=== PATIENT | male | born 1995 | race Caucasian/White ===

== ENCOUNTER 2017-03-08 10:28 | Emergency (ER) | payer SELFPAY ==
[~2017-03-08] VITALS: Ht 193 cm; Wt 68.0 kg
[2017-03-08 10:34] VITALS: TEMP 36.4; Ht 193 cm; Wt 68.0 kg
--- NOTE | 2017-03-08 11:07 | DIAGNOSTIC IMAGING REPORT ---
RIGHT HAND 3 VIEWS HISTORY: R hand 5th MC pain/deformity Right COMPARISON: None. FINDINGS: Transverse fracture within the mid shaft of the fifth metacarpal which demonstrates mild angulation. No dislocation. Soft tissue swelling within the hand. No radiopaque foreign bodies. IMPRESSION: Right fifth metacarpal fracture. Electronically signed by: Brady Vidales M.D. 03/08/2017 11:06 AM Dictated Date/Time: 03/08/2017 11:05 AM
[2017-03-08] MEDS ORDERED: HYDR-5688 PO (11:38)
[2017-03-08 12:27] VITALS: BP 112/70; PULSE 57; O2SAT 100
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
== END 2017-03-08 12:29 | disposition home or self-care (01) ==
LOC: C.EDB 10:29 → C.EDA 12:29
DX: S62.326A Displaced fracture of shaft of fifth metacarpal bone, right hand, initial encounter for closed fracture (principal); Z87.828 Personal history of other (healed) physical injury and trauma; Z82.49 Family history of ischemic heart disease and other diseases of the circulatory system; Z83.3 Family history of diabetes mellitus; W10.9XXA Fall (on) (from) unspecified stairs and steps, initial encounter

== ENCOUNTER 2017-09-12 15:37 | Emergency (ER) | payer OTHER ==
[~2017-09-12] VITALS: Ht 193 cm; Wt 76.7 kg
[2017-09-12 15:41] VITALS: TEMP 36.7; Ht 193 cm; Wt 76.7 kg
[2017-09-12 16:52] LABS: BASO % 0.4 %; BASO ABS # 0.04 K/uL (0-0.2); COMPLETE YES; EOS % 0.5 %; HEMATOCRIT 44.7 % (42-52); IG% 0.1 %; LYMPH % 6.1 %; LYMPH ABS # 0.64 K/uL (1.2-3.4); MEAN CELL VOLUME 90.9 fL (80-100); MEAN CORPUSCULAR HEMOGLOBIN 31.1 pg (25-34); MEAN CORPUSCULAR HGB CONC 34.2 g/dl (32-36); MEAN PLATELET VOLUME 10.9 fL (7.4-10.4); MONO % 7.8 %; NEUT % 85.1 %; PLATELET COUNT 209 K/uL (130-400); RED BLOOD COUNT 4.92 M/uL (4.7-6.1); WHITE BLOOD COUNT 10.43 K/uL (4.8-10.8)
[2017-09-12 17:02] LABS: MANUAL MICROSCOPIC REQUIRED? NO; REVIEW REQ? NO; URINE APPEARANCE CLOUDY (CLEAR); URINE BILIRUBIN NEG (NEG); URINE COLOR YELLOW; URINE NITRITE NEG (NEG); URINE PH >= 9.0 (4.5-7.5); URINE SPECIFIC GRAVITY 1.017 (1.000-1.030); UROBILINOGEN NEG (NEG)
[2017-09-12 17:08] LABS: BUN/CREATININE RATIO 10.6 (10-20); CALCIUM 9.1 mg/dl (8.5-10.1); CREATININE 1.13 mg/dl (0.60-1.40); POTASSIUM 4.6 mmol/L (3.5-5.1)
[2017-09-12 17:19] LABS: THYROID STIMULATING HORMONE 0.568 uIu/ml (0.300-4.500)
[2017-09-12 17:23] LABS: ACETAMINOPHEN < 2 ug/ml (10-30)
[2017-09-12 17:34] LABS: BENZODIAZEPINE, URINE NEG (NEG); COCAINE,URINE NEG (NEG); PHENCYCLIDINE, URINE NEG (NEG)
[2017-09-12 20:26] VITALS: BP 134/77; PULSE 80; O2SAT 99
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
== END 2017-09-12 20:29 | disposition home or self-care (01) ==
LOC: C.EDB 15:38 → C.EDA 20:29
DX: F39 Unspecified mood [affective] disorder (principal); R45.851 Suicidal ideations; J02.9 Acute pharyngitis, unspecified; F17.200 Nicotine dependence, unspecified, uncomplicated

== ENCOUNTER 2019-08-28 18:12 | Observation (INO) ==
[2019-08-28] MEDS ORDERED: PROCHLORPERAZINE 5 MG/ML 2 ML VIAL IV STA (18:52)
[2019-08-28] MEDS ORDERED: DiphenhydrAMINE HCL 50 MG/ML VIAL IV STA (18:52)
[2019-08-28] MEDS ORDERED: MAGNESIUM SULFATE / D5W 1 GM/100 ML BAG IV ONE (18:54)
[2019-08-28] MEDS ORDERED: VALPROATE SOD 1,000 MG in DEXTROSE 5% 50 ML IV STA (18:54)
[2019-08-28] MEDS ORDERED: SODIUM CHLORIDE 0.9% 1000ML 1,000 ML IV SCH (19:00)
[2019-08-28 19:07] LABS: Basophils # (auto) 0.02 K/uL (0-0.2); Basophils % (auto) 0.4 %; Eosinophils # (auto) 0.03 K/uL (0-0.5); Eosinophils % (auto) 0.6 %; Hematocrit (blood only) 37.3 % (42-52); Hemoglobin 12.9 g/dL (14.0-18.0); Lymphocytes # (auto) 1.55 K/uL (1.2-3.4); Lymphocytes % (auto) 32.2 %; Mean Corpuscular Hemoglobin 30.9 pg (25-34); Mean Corpuscular Hgb Conc 34.6 g/dL (32-36); Mean Corpuscular Volume 89.4 fL (80-100); Monocytes # (auto) 0.56 K/uL (0.11-0.59); Monocytes % (auto) 11.6 %; Neutrophils # (auto) 2.65 K/uL (1.4-6.5); Neutrophils % (auto) 55.2 %; Platelet Count 164 K/uL (130-400); RDW Coefficient of Variation 12.5 % (11.5-14.5); RDW Standard Deviation 40.5 fL (36.4-46.3); Red Blood Count 4.17 M/uL (4.7-6.1); White Blood Count 4.81 K/uL (4.8-10.8)
[2019-08-28 19:34] LABS: Albumin Globulin Ratio 1.3 (0.9-2); Albumin Level 3.6 gm/dl (3.4-5.0); BUN Creatinine Ratio 8.5 (10-20); Bilirubin,Total 0.3 mg/dl (0.2-1); Calcium 8.2 mg/dl (8.5-10.1); Creatinine Clr Calc Pharmacy 113.2 ml/min; Est GFR (African American) 104.9; Est GFR (Non-African American) 90.5; Globulin 2.8 gm/dl (2.5-4.0); Potassium 3.6 mmol/L (3.5-5.1); Total Protein 6.4 gm/dl (6.4-8.2)
[2019-08-28] MEDS ORDERED: DEXAMETHASONE SOD PHOSPHATE 10 MG in SYRINGE 0 ML IV STA (20:47)
[2019-08-28] MEDS ORDERED: DiphenhydrAMINE HCL 50 MG/ML VIAL IV PRN (20:49)
[2019-08-28] MEDS ORDERED: METOCLOPRAMIDE HCL INJ 5 MG/ML 2 ML VIAL IV PRN (20:49)
[2019-08-28] MEDS ORDERED: DEXAMETHASONE SOD INJ 4 MG/ML VIAL IV ONE (21:00)
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
[2019-08-28] MEDS ORDERED: GADOBUTROL 65ML VIAL IV PRN (22:17)
--- NOTE | 2019-08-28 22:34 | Magnetic Resonance Report ---
MR brain wo/w con CLINICAL HISTORY: 24 years-old Male presenting with severe headache, migraines, constant headache for a week, blurred vision. TECHNIQUE: Multisequence, multiplanar MR imaging of the brain was performed before and after the admi nistration of intravenous contrast. IV contrast: 7.5 mL of Gadavist. COMPARISON: CT head from 08/25/2019. FINDINGS: Localizer images: Unremarkable. Bone marrow signal intensity within the calvarium within normal limits. Normal midline sagittal structures. Ventricles and sulci normal in size. No mass effect or midline sh ift. No restricted diffusion or hemorrhage. Several small primarily punctate foci of T2/FLAIR hyperin tensity in the frontal lobe white matter. No abnormal parenchymal enhancement. No extra-axial fluid collection. T2 skull base flow voids preserved. IMPRESSION: 1. Several small foci of abnormal white matter signal can be seen in the setting of chronic migraine s among other etiologies. No abnormal enhancement. Electronically signed by: Steve Baker M.D. 08/28/2019 10:32 PM
[2019-08-28] MEDS ORDERED: DOXYCYCLINE HYCLATE 100 MG in DEXTROSE 5% 100 ML IV SCH (22:37)
[2019-08-28] MEDS ORDERED: IBUPROFEN 600 MG TAB PO PRN (22:37)
[2019-08-28] MEDS: SODIUM CHLORIDE 0.9% 1000ML 1,000 ML IV SCH (23:02)
[2019-08-29] MEDS: DOXYCYCLINE HYCLATE 100 MG in DEXTROSE 5% 100 ML IV SCH ×2 (00:26→12:00)
[2019-08-29] MEDS: SODIUM CHLORIDE 0.9% 1000ML 1,000 ML IV SCH (06:41)
[2019-08-29 07:16] VITALS: O2SAT 98
[2019-08-29 12:07] LABS: Hematocrit (blood only) 41.2 % (42-52); Hemoglobin 14.4 g/dL (14.0-18.0); Immature Granulocytes # (auto) 0.01 K/uL (0.00-0.02); Immature Granulocytes % (auto) 0.1 %; Lymphocytes # (auto) 0.41 K/uL (1.2-3.4); Lymphocytes % (auto) 4.6 %; Mean Corpuscular Volume 88.8 fL (80-100); Mean Platelet Volume 10.4 fL (7.4-10.4); Monocytes # (auto) 0.29 K/uL (0.11-0.59); Monocytes % (auto) 3.3 %; Neutrophils # (auto) 8.13 K/uL (1.4-6.5); Platelet Count 194 K/uL (130-400); RDW Coefficient of Variation 12.3 % (11.5-14.5); RDW Standard Deviation 39.5 fL (36.4-46.3); Red Blood Count 4.64 M/uL (4.7-6.1); White Blood Count 8.84 K/uL (4.8-10.8)
[2019-08-29 12:43] LABS: BUN Creatinine Ratio 12.2 (10-20); Calcium 9.4 mg/dl (8.5-10.1); Creatinine Clr Calc Pharmacy 134.7 ml/min; Est GFR (African American) 129.3; Est GFR (Non-African American) 111.6; Potassium 4.3 mmol/L (3.5-5.1)
[2019-08-29 15:21] VITALS: PULSE 80; TEMP 98.2
--- NOTE | 2019-08-29 15:46 | Hospitalist Progress Note ---
Date of Service August 29, 2019 Assessment & Plan (1) Status migrainosus: Status Migrainosus +Family history of migraine MRI Brain:Several small foci of abnormal white matter signal can be seen in the setting of chronic migraines among other etiologies. No abnormal enhancement. Head CTA:No significant stenosis, occlusion, or aneurysm within the [place]. Recent lumbar puncture: CSF culture negative, serology pending Variable blood pressure likely secondary to migraine Denies any known obvious triggering factors Received valproic acid, diphenhydramine, Compazine in ER Also received Decadron 10 mg IV Continue PRN ibuprofen, diphenhydramine, metoclopramide Neurology consulted Need to be started on prophylactic migraine medications H/O Depression Stable Plan to resume home meds as able Possible Sinusitis Was prescribed Azithromycin by primary care provider 08/27/2019 Continue Doxycycline Day #2 H/O Diarrhea Colonoscopy performed by [facility] last month- unrevealing continue outpatient ff up with GI monitor DVT Px SCDs Encourage to ambulate Code Status Full Code Disposition Expect to discharge home when stable Subjective Patient is seen and examined at bedside Headache is slightly better today Denies any change in vision, vertigo, chest pain, shortness of breath, nausea, abdominal pain, dizziness Admits to have allergies, sinus pressure Offers no other complaints Review of Systems Review of Systems: All systems reviewed & are unremarkable except as noted in HPI & below Physical Exam Physical Exam: Physical Exam: Vitals signs as noted above General Appearance:Moderately built and nourished, no apparent distress Head: normocephalic, Atraumatic Eyes: normal inspection, EOMI Neck: supple, Trachea midline Respiratory/Chest: Normal breath sounds, CTA Cardiovascular: S1, S2, No murmur Abdomen/GI:Soft, Non tender, Bowel sounds present Extremities/Musculoskelatal:normal inspection, no edema Neurologic/Psych:AAOX3, grossly no focal neurological deficits Skin: normal color, warm, +Multiple Tatoos Results & Data Vital Signs (Past 12 Hours) Vital Signs Temp Pulse Resp BP Pulse Ox 08/29/19 15:20 36.8 C 80 16 99/70 L 98 08/29/19 07:15 36.3 C L 72 18 123/78 98 Laboratory Results Short CBC 08/28/19 08/29/19 Range/Units 18:57 11:50 WBC 4.81 8.84 (4.8-10.8) K/uL Hgb 12.9 L 14.4 (14.0-18.0) g/dL Hct 37.3 L 41.2 L (42-52) % Plt Count 164 194 (130-400) K/uL BMP 08/28/19 08/29/19 18:57 11:50 Sodium 142 138 Potassium 3.6 4.3 D Chloride 105 103 Carbon Dioxide 33 H 30 BUN 10 12 Creatinine 1.13 0.95 Glucose 95 105 H Calcium 8.2 L 9.4 Liver Function 08/28/19 Range/Units 18:57 Total Bilirubin 0.3 (0.2-1) mg/dl AST 15 (15-37) U/L ALT 17 (12-78) U/L Alkaline Phosphatase 50 (45-117) U/L Albumin 3.6 (3.4-5.0) gm/dl
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
--- NOTE | 2019-08-29 17:36 | Discharge Summary ---
Date of Service August 29, 2019 Admission HPI Per Admitting Provider History of Present Illness 24-year-old male with history of depression presenting with persistent headache times few days. A few days ago patient started to have left-sided headache, sharp, severe, worsened by light, persistent, no associated neurologic deficits, Associated with malaise and night sweats per family members. No fevers or chills. He presented to the ER on August 25. CT angiogram of the head revealed no significant stenosis, occlusion, aneurysm within the [place]. Headache improved with Decadron, Benadryl, Compazine, and Toradol. The next day patient presented to the ER again for worsening of headaches. Lumbar puncture was performed, negative for meningitis. Lyme screen negative, anaplasmosis DNA pending. He was advised for admission but patient declined. Yesterday, patient saw his primary care provider and was prescribed with azithromycin, Toradol, Compazine. Headache continued to progress Today, patient presents again with severe left-sided headache. At the ER, he was given Valium, Compazine, and Benadryl with relief of symptoms. On my exam, the patient is resting in bed, drowsy but able to be awakened. He is oriented x3, reports headache is now down to 3 out of 10. Denies active nausea, chest pain, shortness of breath, dizziness, abdominal pain, changes with urination or bowel movement. Primary Care Provider: Evens Costa MD Admission Exam Per Admitting Provider Physical Exam Physical Exam: General- oriented x 3, not in distress, speaks in sentences with no effort or accessory muscle use Drowsy Head- atraumatic Eyes- PERRL, EOMI, anicteric ENT- oropharynx clear Neck- supple, no JVD, no adenopathy, no thyromegaly; carotids +2/2, no bruits appreciated Lungs- clear to auscultation bilaterally, no rales/wheezes Heart- normal rate, regular rhythm; no murmur, no gallop, no rub appreciated Abdomen- normal bowel sounds, nondistended, soft, nontender, no masses or hepatosplenomegaly Extremities- no pretibial edema, no calf tenderness; peripheral pulses intact Neuro-drowsy but easily awakened, oriented x 3; CN 2-12 grossly intact; motor 5/5 bilaterally;sensation 100% on all extremities; no other gross focal neurologic deficits Skin- warm & dry Principal Diagnosis Status migrainosus Possible Sinusitis Discharge Data Allergies Allergy/AdvReac Type Severity Reaction Status Date / Time amoxicillin Allergy Intermediate Hives Unverified 08/28/19 18:40 Consultations 08/28/19 19:56 ED Decision to Admit Stat 08/28/19 22:37 Consult Neurology Routine Procedures Performed MRI Brain:Several small foci of abnormal white matter signal can be seen in the setting of chronic migraines among other etiologies. No abnormal enhancement. Head CTA:No significant stenosis, occlusion, or aneurysm within the [place]. Ordered Studies 08/28/19 20:43 MR brain wo/w con Stat Hospital Course (1) Status migrainosus: Status Migrainosus +Family history of migraine MRI Brain:Several small foci of abnormal white matter signal can be seen in the setting of chronic migraines among other etiologies. No abnormal enhancement. Head CTA:No significant stenosis, occlusion, or aneurysm within the [place]. Recent lumbar puncture: CSF culture negative, serology pending Variable blood pressure likely secondary to migraine Denies any known obvious triggering factors Received valproic acid, diphenhydramine, Compazine in ER Also received Decadron 10 mg IV Continue PRN ibuprofen, diphenhydramine, metoclopramide Appreciate Neurology Input Started on Magnesium Oxide and Riboflavin Needs follow up with Neurology in 4-6 weeks H/O Depression Stable Currently not on meds as per patient Possible Sinusitis Was prescribed Azithromycin by primary care provider 08/27/2019 Continue Doxycycline H/O Diarrhea Colonoscopy performed by [facility] last month- unrevealing continue outpatient ff up with GI monitor DVT Px SCDs Encourage to ambulate Code Status Full Code Disposition Plan to discharge home today Total Time Total Time Spent Total Time Spent (In Minutes): 40 minutes Total Time Includes: Examination of the Patient, Discharge Planning, Medication Reconciliation, Communication With Other Providers and Other Discharge Plan Discharge Items Patient Disposition: Home - Self-Care Reason For Visit: SEVERE MIGRAINE Discharge Diagnosis: Status migrainosus Possible Sinusitis Activity: Resume your previous activity Exercise/Sports: Gradually increase as tolerated Non-emergency contact: Primary Care Provider and Neurologist Call non-emergency contact if: you have any medication questions, your symptoms worsen, your pain is not controlled, your pain is worsening, your pain is unusual for you, your pain is concerning for you and you have a fever Follow-up/Referrals: Evens Costa MD [Primary Care Provider] - Diet: Regular Addtl Attending Provider Instructions: Follow-up with your primary care physician Dr. Pattesron in 1 week as advised Follow-up with your neurologist Alysia Laurent PA-C in 4 to 6 weeks as advised Complete antibiotic course for sinusitis as prescribed Start taking magnesium oxide 400 mg, riboflavin 400 mg daily to help with your migraine Seek immediate medical attention if your symptoms reoccur or worsen Pending Studies at Discharge: No Stand-Alone Forms: My [facility], Work/School Release (Inpt), Smoking Cessation Medications and DC Order Prescriptions: New magnesium oxide 400 mg (241.3 mg magnesium) tablet 400 mg PO DAILY Qty: 30 RF: 1 riboflavin (vitamin B2) 400 mg tablet 400 mg PO DAILY Qty: 30 RF: 1 doxycycline hyclate 100 mg tablet 100 mg PO BID 4 Days Qty: 8 RF: 0 Continued ibuprofen 200 mg Tablet 600 mg PO Q6H PRN (Reason: Fever Or Pain) RF: 0 Discontinued azithromycin 250 mg tablet 250 mg PO UD RF: 0 ketorolac 10 mg tablet 10 mg PO QID PRN (Reason: Pain) RF: 0 Discharge Orders: Discharge Order (Routine); Ordered 08/29/19 Ordered By: Curtis Neri Admission Data Admit Date/Time: 08/28/19 20:43 Attending Provider: Curtis Neri Admit Provider: Albert Constantino Primary Care Provider: Evens Costa Other Providers: Albert Constantino ; Alysia Arias Other Interventions: Discharge Summary Assessment (RN) Last Done: 08/29/19 17:41 DC Date/Time DO NOT enter until pt leaves facility: 08/29/19 18:05
[2019-08-29 17:43] VITALS: BP 139/83
== END 2019-08-29 18:05 | disposition home or self-care (01) ==
LOC: ED 18:12 → 4W 18:12 → SUATTDRO 20:43 → 4W 22:30

== ENCOUNTER 2021-02-23 12:44 | Inpatient (IN) ==
[2021-02-23] MEDS ORDERED: NALOXONE HCL 0.4 MG/1 ML VIAL/CARP IV STA (13:04)
[2021-02-23] MEDS ORDERED: SODIUM CHLORIDE 0.9% 1000ML 2,000 ML IV ONE (13:17)
[2021-02-23 13:28] LABS: Basophils # (auto) 0.03 K/uL (0-0.2); Basophils % (auto) 0.2 %; Eosinophils # (auto) 0.16 K/uL (0-0.5); Eosinophils % (auto) 1.2 %; Hematocrit (blood only) 43.9 % (42-52); Hemoglobin 15.3 g/dL (14.0-18.0); Immature Granulocytes # (auto) 0.03 K/uL (0.00-0.02); Immature Granulocytes % (auto) 0.2 %; Lymphocytes # (auto) 2.33 K/uL (1.2-3.4); Lymphocytes % (auto) 17.2 %; Mean Corpuscular Hemoglobin 31.5 pg (25-34); Mean Corpuscular Hgb Conc 34.9 g/dL (32-36); Mean Corpuscular Volume 90.5 fL (80-100); Monocytes # (auto) 0.82 K/uL (0.11-0.59); Monocytes % (auto) 6.1 %; Neutrophils # (auto) 10.16 K/uL (1.4-6.5); Neutrophils % (auto) 75.1 %; Platelet Count 301 K/uL (130-400); RDW Coefficient of Variation 12.3 % (11.5-14.5); RDW Standard Deviation 40.6 fL (36.4-46.3); Red Blood Count 4.85 M/uL (4.7-6.1); White Blood Count 13.53 K/uL (4.8-10.8)
--- NOTE | 2021-02-23 13:44 | XRay Report ---
XR chest 1V portable CLINICAL HISTORY: Chest Pain COMPARISON STUDY: Chest radiograph June 30, 2017. FINDINGS: Lung volumes are normal. Lungs are clear. There is no pneumothorax or pleural effusion. Car diac size is normal. Mediastinal contours are normal. There is no evidence for pulmonary edema. IMPRESSION: No acute cardiopulmonary findings. ACT 112: Negative or not required by law. Electronically signed by: Miguel Ángel Brenner M.D. 02/23/2021 1:43 PM
[2021-02-23 13:45] LABS: Alanine Aminotransferase 21 U/L (12-78); Albumin Level 4.2 gm/dl (3.4-5.0); Aspartate Aminotransferase 16 U/L (15-37); Bilirubin Direct 0.2 mg/dl (0-0.2); Blood Urea Nitrogen 14 mg/dl (7-18); Calcium 8.6 mg/dl (8.5-10.1); Carbon Dioxide 30 mmol/L (21-32); Chloride 103 mmol/L (98-107); Creatinine Clr Calc Pharmacy 100.8 ml/min; Est GFR (African American) 91.3; Est GFR (Non-African American) 78.8; Glucose 220 mg/dl (70-99); Lipase 224 U/L (73-393); Magnesium 2.1 mg/dl (1.8-2.4); Potassium 3.2 mmol/L (3.5-5.1); Sodium 140 mmol/L (136-145)
[2021-02-23 13:49] LABS: Albumin Globulin Ratio 1.4 (0.9-2); Alkaline Phosphatase 62 U/L (45-117); Bilirubin,Total 0.6 mg/dl (0.2-1); Creatine Kinase 150 U/L (39-308); Globulin 3.1 gm/dl (2.5-4.0); Phosphorus 3.9 mg/dl (2.5-4.9); Total Protein 7.3 gm/dl (6.4-8.2); Troponin I < 0.015 ng/ml (0-0.045)
[2021-02-23 14:19] LABS: Appearance Urine Turbid (Clear); Bacteria Urine Automated Negative (Negative); Bilirubin Urine Negative (Negative); Blood Urine Negative (Negative); Color Urine Yellow; Glucose Urine UA 2+ (Negative); Ketones Urine Negative (Negative); Leukocyte Esterase Urine Negative (Negative); Nitrite Urine Negative (Negative); Protein Urine Negative (Negative); RBC Urine Automated >30 /hpf (0-4); Specific Gravity Urine 1.026 (1.000-1.030); Urobilinogen Urine Negative (Negative)
[2021-02-23 14:34] LABS: Amorphous Sediment Urine Present (None Prsent)
[2021-02-23 14:38] LABS: Amphetamines+Metham, Urine Neg (Neg); Barbiturates, Urine Neg (Neg); Benzodiazepine, Urine Neg (Neg); Cocaine, Urine Neg (Neg); MDMA (Ecstacy), Urine Neg (Neg); Methadone, Urine Neg (Neg); Opiate, Urine Neg (Neg); Phencyclidine, Urine Neg (Neg)
--- NOTE | 2021-02-23 15:40 | Electrocardiogram Report ---
Test Reason : Blood Pressure : / mmHG Vent. Rate : 133 BPM Atrial Rate : 133 BPM P-R Int : 134 ms QRS Dur : 106 ms QT Int : 302 ms P-R-T Axes : 059 071 045 degrees QTc Int : 449 ms Sinus tachycardia RSR' or QR pattern in V1 suggests right ventricular conduction delay Borderline ECG No previous ECGs available Confirmed by Bubba Hawthorne ([id number]) on 02/23/2021 3:40:00 PM Referred By: REFERRED SELF Confirmed By:Bubba Hawthorne
--- NOTE | 2021-02-23 15:40 | CT Scan Report ---
CT OF THE HEAD WITHOUT CONTRAST CLINICAL HISTORY: syncope COMPARISON STUDY: Head CT and CTA of the head August 25, 2019. MRI the brain August 28, 2019. CT DOSE: 614.27 mGy.cm TECHNIQUE: Helical axial images of the head were obtained without IV contrast. Automated exposure con trol was utilized for the study. A dose lowering technique was utilized adhering to the principles o f ALARA. FINDINGS: No acute intracranial hemorrhage, midline shift or mass effect is present. The ventricular system is unremarkable. The basal cisterns are patent. No extra-axial collections are present. There are no findings to suggest acute dural sinus thrombosis or acute territorial infarct. No significant calvarial abnormalities are present. Visualized portions of the sinuses and mastoid air cells are zach ar. IMPRESSION: No acute intracranial findings. ACT 112: Negative or not required by law. Electronically signed by: Miguel Ángel Brenner M.D. 02/23/2021 3:39 PM
[2021-02-23] MEDS ORDERED: GADOBUTROL 7.5ML VIAL IV ONE (17:21)
--- NOTE | 2021-02-23 18:00 | Emergency Department Note ---
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 Influenza Type B (PCR) Negative (Neg) RSV (RT-PCR) Negative (Neg) Administered Medications Discontinued Medications Diphenhydramine HCl (Diphenhydramine 50 Mg/Ml Vial) 12.5 mg IV NOW STA Stop: 02/23/21 19:45 Last Admin: 02/23/21 19:51 Dose: 12.5 mg Documented by: [id number] Gadobutrol (Gadobutrol 7.5ml Vial) 7.5 ml IV ONCE ONE Stop: 02/23/21 17:22 Last Admin: 02/23/21 17:21 Dose: 7.5 ml Documented by: [id number] Sodium Chloride (Nss 1000ml) 2,000 mls @ 999 mls/hr IV .Q2H1M ONE Stop: 02/23/21 15:17 Last Infusion: 02/23/21 15:45 Dose: 0 mls/hr Documented by: [id number] Admin: 02/23/21 13:45 Dose: 999 mls/hr Documented by: [id number] Acetaminophen (Ofirmev) 1,000 mg in 100 mls @ 400 mls/hr IV NOW STA Stop: 02/23/21 19:58 Last Infusion: 02/23/21 20:18 Dose: 0 mls/hr Documented by: [id number] Admin: 02/23/21 19:50 Dose: 400 mls/hr Documented by: [id number] Prochlorperazine (Compazine) 1 mls @ 1 mls/min IV ONE ONE Stop: 02/23/21 19:45 Last Admin: 02/23/21 19:51 Dose: 1 mls/min Documented by: [id number] Ioversol (Optiray 350 500ml) 120 ml IV ONCE ONE Stop: 02/23/21 20:58 Last Admin: 02/23/21 20:58 Dose: 120 ml Documented by: [id number] Naloxone HCl (Naloxone Hcl 0.4 Mg/1 Ml Vial/Carp) 0.4 mg IV NOW STA Stop: 02/23/21 13:05 Last Admin: 02/23/21 14:50 Dose: Not Given Documented by: [id number] Potassium Chloride (Potassium Chloride Crtab 20 Meq Tabcr) 40 meq PO NOW STA Stop: 02/23/21 19:16 Last Admin: 02/23/21 19:50 Dose: 40 meq Documented by: [id number] Imaging Data Radiologist's Impression: Chest X-Ray 02/23/21 13:17 XR chest 1V portable CLINICAL HISTORY: Chest Pain COMPARISON STUDY: Chest radiograph June 30, 2017. FINDINGS: Lung volumes are normal. Lungs are clear. There is no pneumothorax or pleural effusion. Cardiac size is normal. Mediastinal contours are normal. There is no evidence for pulmonary edema. IMPRESSION: No acute cardiopulmonary findings. ACT 112: Negative or not required by law. Electronically signed by: Miguel Ángel Brenner M.D. 02/23/2021 1:[address] 02/23/21 14:58 CT OF THE HEAD WITHOUT CONTRAST CLINICAL HISTORY: syncope COMPARISON STUDY: Head CT and CTA of the head August 25, 2019. MRI the brain August 28, 2019. CT DOSE: 614.27 mGy.cm TECHNIQUE: Helical axial images of the head were obtained without IV contrast. Automated exposure control was utilized for the study. A dose lowering techni que was utilized adhering to the principles of ALARA. FINDINGS: No acute intracranial hemorrhage, midline shift or mass effect is present. The ventricular system is unremarkable. The basal cisterns are patent. No extra-axial collections are present. There are no findings to suggest acute dural sinus thrombosis or acute territorial infarct. No significant calvarial abnormalities are present. Visualized portions of the sinuses and mastoid air cells are clear. IMPRESSION: No acute intracranial findings. ACT 112: Negative or not required by law. Electronically signed by: Miguel Ángel Brenner M.D. 02/23/2021 3:39 PM Brain MRI 02/23/21 16:45 MRI OF THE BRAIN WITHOUT AND WITH IV CONTRAST SEIZURE PROTOCOL CLINICAL HISTORY: syncope / ?sz COMPARISON STUDY: MRI of the brain August 28, 2019. Head CT performed earlier today. TECHNIQUE: Utilizing a 1.5 Peri magnet and dedicated coil, multiplanar, multiecho imaging of the brain was performed pre and postcontrast administration. IV administration of 7.5 mL of Gadavist contrast was uneventful. Thin cut coronal T2 imaging was performed according to seizure protocol. FINDINGS: There are no foci of restricted diffusion to suggest acute infarct. No acute intracranial hemorrhage, midline shift or mass effect is present. Brain volume is normal. Ventricular system is normal. Basal cisterns are patent. There are no extra-axial collections. Flow-voids for the major intracranial vessels are present. This exam is mildly compromised by motion artifact. There is no intracranial mass or pathologic enhancement. A few white matter T2 hyperintense foci measuring up to 5 mm are unchanged since MRI of August 28, 2019. There is no evidence for mesial temporal sclerosis. Calvarial signal is normal. Orbits ar e unremarkable. IMPRESSION: 1. No acute intracranial findings. 2. No intracranial mass or pathologic enhancement. 3. No change in a few small nonspecific white matter T2 hyperintense foci since MRI of August 28, 2019. No change in appearance of the brain. ACT 112: Negative or not required by law. Electronically signed by: Miguel Ángel Brenner M.D. 02/23/2021 6:14 PM Discharge Plan Visit Data Chief Complaint: Overdose (Accidental) ED Provider: Danny Nielsen Discharge Problem: Syncope, Witnessed seizure-like activity, Elevated blood pressure reading, Microscopic hematuria, Right ventricular conduction delay, Hypokalemia Patient Disposition: Admitted As Inpatient Condition: Good Prescriptions Prescriptions: No Action No Known Home Medications RF: 0 Referrals Referrals: Evens Costa MD [Primary Care Provider] - Discharge Problem: Syncope Qualifiers: Syncope type: unspecified Qualified Code(s): R55 - Syncope and collapse
--- NOTE | 2021-02-23 18:15 | Magnetic Resonance Report ---
MRI OF THE BRAIN WITHOUT AND WITH IV CONTRAST SEIZURE PROTOCOL CLINICAL HISTORY: syncope / ?sz COMPARISON STUDY: MRI of the brain August 28, 2019. Head CT performed earlier today. TECHNIQUE: Utilizing a 1.5 Peri magnet and dedicated coil, multiplanar, multiecho imaging of the br ain was performed pre and postcontrast administration. IV administration of 7.5 mL of Gadavist contr ast was uneventful. Thin cut coronal T2 imaging was performed according to seizure protocol. FINDINGS: There are no foci of restricted diffusion to suggest acute infarct. No acute intracranial h emorrhage, midline shift or mass effect is present. Brain volume is normal. Ventricular system is nor mal. Basal cisterns are patent. There are no extra-axial collections. Flow-voids for the major intrac ranial vessels are present. This exam is mildly compromised by motion artifact. There is no intracran ial mass or pathologic enhancement. A few white matter T2 hyperintense foci measuring up to 5 mm are unchanged since MRI of August 28, 2019. There is no evidence for mesial temporal sclerosis. Calvari al signal is normal. Orbits are unremarkable. IMPRESSION: 1. No acute intracranial findings. 2. No intracranial mass or pathologic enhancement. 3. No change in a few small nonspecific white matter T2 hyperintense foci since MRI of August 28 019. No change in appearance of the brain. ACT 112: Negative or not required by law. Electronically signed by: Miguel Ángel Brenner M.D. 02/23/2021 6:14 PM
[2021-02-23 19:09] LABS: Troponin I < 0.015 ng/ml (0-0.045)
[2021-02-23] MEDS ORDERED: POTASSIUM CHLORIDE CRTAB 20 MEQ TABCR PO STA ×2 (19:15→21:53)
[2021-02-23] MEDS ORDERED: diphenhydrAMINE 50 MG/ML VIAL IV STA (19:44)
[2021-02-23] MEDS ORDERED: PROCHLORPERAZINE 1 ML IV ONE (19:44)
[2021-02-23] MEDS ORDERED: ACETAMINOPHEN 1,000 MG/100 ML VIAL IV STA (19:44)
[2021-02-23] MEDS ORDERED: LACTATED RINGER'S 1,000 ML IV SCH (19:45)
[2021-02-23 20:17] LABS: Partial Thromboplastin Ratio 0.8; Partial Thromboplastin Time 21.7 Seconds (21.0-31.0)
[2021-02-23 20:19] LABS: Thyroid Stimulating Hormone 0.632 uIu/ml (0.300-4.500)
[2021-02-23 20:49] LABS: Procalcitonin < 0.05 ng/ml (0-0.5)
[2021-02-23 20:55] LABS: Lyme Ab IgG w/WB Rflx Negative (Negative); Lyme Ab IgM w/WB Rflx Negative (Negative)
[2021-02-23] MEDS ORDERED: OPTIRAY 350 500ml IV ONE (20:57)
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
[2021-02-23 21:25] LABS: Influenza A virus by PCR Negative (Neg); Influenza B virus by PCR Negative (Neg); RSV by PCR Negative (Neg); SARS CoV2 RNA(COVID-19) InHosp NEGATIVE (Negative)
[2021-02-23] MEDS ORDERED: CLINDAMYCIN 600 MG in DEXTROSE 5% 50 ML IV ONE (21:53)
[2021-02-23] MEDS ORDERED: LEVALBUTEROL 1.25MG/0.5ML NEB INH PRN (22:51)
[2021-02-23] MEDS ORDERED: PROMETHAZINE HCL 12.5 MG in SODIUM CHLORIDE 0.9% 50 ML IV PRN (22:51)
[2021-02-23] MEDS ORDERED: NITROGLYCERIN SL 0.4 MG/TAB TAB SL PRN (22:51)
[2021-02-23] MEDS ORDERED: KETOROLAC TROMETHAMINE 15 MG/ML VIAL IV PRN (22:51)
[2021-02-23] MEDS ORDERED: IPRATROPIUM BROMIDE NEB SOLN 0.02% 2.5 ML VIAL INH PRN (22:51)
[2021-02-23] MEDS ORDERED: XOPENEX/ATROVENT 1.25mg/0.5MG NEB COMBO NEB PRN (22:51)
[2021-02-23] MEDS ORDERED: IBUPROFEN 200 MG TAB PO PRN (22:51)
[2021-02-23] MEDS: NICOTINE 14 MG/24 HR PATCH TD SCH (23:13)
[2021-02-23] MEDS ORDERED: POTASSIUM CHLORIDE 20 MEQ in LACTATED RINGER'S 1,000 ML IV ONE (23:15)
[2021-02-24] MEDS ORDERED: LACTULOSE SYRUP 30 GM/45 ML UDP PO STA (00:16)
[2021-02-24] MEDS: CLINDAMYCIN HCL 150 MG CAP PO SCH ×3 (06:12→17:15)
--- NOTE | 2021-02-24 07:47 | CT Scan Report ---
CT ANGIOGRAM OF THE CHEST CLINICAL HISTORY: Syncope. Found unresponsive. COMPARISON STUDY: Chest x-ray dated 02/23/2021. TECHNIQUE: Following the IV administration of 120 cc of Optiray 350, CT angiogram of the chest was pe rformed from the upper abdomen to the thoracic inlet utilizing the pulmonary embolus protocol. Images are reviewed in the axial, sagittal, and coronal planes. 3-D MIPS images are created and assessed. I V contrast was administered without complication. A dose lowering technique was utilized adhering to the principles of ALARA. CT DOSE: 404.45 mGy.cm FINDINGS: Thyroid: Imaged portions of the thyroid gland are normal in size and attenuation. Thoracic aorta: The thoracic aorta is normal in caliber and demonstrates standard 3-vessel arch anato my. No dissection is seen. Pulmonary vasculature: The pulmonary trunk is normal in caliber. There are no filling defects identif ied in main, lobar, or segmental pulmonary branches to suggest pulmonary embolus. Heart: The heart is normal in size and without pericardial effusion. Lungs and pleural spaces: There is mild patchy groundglass consolidation seen at the right lung base on image #125. The trachea and central airways are clear. No pleural effusion is identified. Mediastinum: There is no mediastinal lymphadenopathy. Katie: Clear. Axillae: There is no axillary lymphadenopathy. Upper abdomen: Partially visualized upper abdominal viscera is within normal limits. Skeletal structures: No lytic or blastic bony lesions are seen. IMPRESSION: 1. There is no evidence of pulmonary embolus in the main, lobar, or segmental pulmonary arteries. 2. Mild patchy consolidation is seen at the right lung base. This could represent a mild infectious/i nflammatory pneumonitis, or possibly an aspiration event. Clinical correlation will be required. 3. No pleural effusion is identified. 4. Additional findings as above. ACT 112: Negative or not required by law. Electronically signed by: Constantin Gupta M.D. 02/24/2021 7:45 AM
[2021-02-24] MEDS ORDERED: CLINDAMYCIN 600 MG in DEXTROSE 5% 50 ML IV SCH (08:00)
[2021-02-24 08:03] LABS: Basophils # (auto) 0.02 K/uL (0-0.2); Basophils % (auto) 0.3 %; Eosinophils # (auto) 0.08 K/uL (0-0.5); Hematocrit (blood only) 39.8 % (42-52); Hemoglobin 13.5 g/dL (14.0-18.0); Immature Granulocytes # (auto) 0.02 K/uL (0.00-0.02); Immature Granulocytes % (auto) 0.3 %; Lymphocytes # (auto) 1.27 K/uL (1.2-3.4); Lymphocytes % (auto) 16.1 %; Mean Corpuscular Hemoglobin 31.8 pg (25-34); Mean Corpuscular Hgb Conc 33.9 g/dL (32-36); Mean Corpuscular Volume 93.9 fL (80-100); Mean Platelet Volume 10.1 fL (7.4-10.4); Monocytes # (auto) 0.64 K/uL (0.11-0.59); Monocytes % (auto) 8.1 %; Neutrophils # (auto) 5.86 K/uL (1.4-6.5); Neutrophils % (auto) 74.2 %; Platelet Count 206 K/uL (130-400); RDW Coefficient of Variation 12.6 % (11.5-14.5); RDW Standard Deviation 43.3 fL (36.4-46.3); Red Blood Count 4.24 M/uL (4.7-6.1); White Blood Count 7.89 K/uL (4.8-10.8)
[2021-02-24] MEDS: NICOTINE 14 MG/24 HR PATCH TD SCH (08:07)
[2021-02-24] MEDS: ACETAMINOPHEN 325 MG TAB PO PRN ×2 (08:11→17:14)
[2021-02-24] MEDS: ENOXAPARIN INJ 40 MG/0.4 ML SYR SQ SCH (08:12)
[2021-02-24] MEDS: ADVANCED PROBIOTIC 1250 MG CAPSULE PO SCH (08:12)
[2021-02-24 08:13] LABS: Partial Thromboplastin Time 27.5 Seconds (21.0-31.0)
[2021-02-24 08:38] LABS: BUN Creatinine Ratio 9.4 (10-20); Blood Urea Nitrogen 8 mg/dl (7-18); Calcium 8.8 mg/dl (8.5-10.1); Carbon Dioxide 30 mmol/L (21-32); Chloride 108 mmol/L (98-107); Creatinine Clr Calc Pharmacy 137.8 ml/min; Est GFR (African American) 137.7; Est GFR (Non-African American) 118.8; Glucose 89 mg/dl (70-99); Potassium 4.2 mmol/L (3.5-5.1); Sodium 141 mmol/L (136-145)
[2021-02-24 09:00] LABS: Troponin I < 0.015 ng/ml (0-0.045)
[2021-02-24] MEDS ORDERED: CLINDAMYCIN CONSULT ACTIVE PRN (09:00)
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
--- NOTE | 2021-02-24 11:44 | Electrocardiogram Report ---
Test Reason : Blood Pressure : / mmHG Vent. Rate : 085 BPM Atrial Rate : 085 BPM P-R Int : 140 ms QRS Dur : 100 ms QT Int : 370 ms P-R-T Axes : 053 061 045 degrees QTc Int : 440 ms Poor data quality, interpretation may be adversely affected Normal sinus rhythm Normal ECG When compared with ECG of 23-FEB-2021 12:51, Vent. rate has decreased BY 48 BPM Confirmed by Bubba Hawthorne ([id number]) on 02/24/2021 11:44:21 AM Referred By: REFERRED SELF Confirmed By:Bubba Hawthorne
--- NOTE | 2021-02-24 12:57 | Electroencephalogram ---
EEG Procedure Note Date of Service February 24, 2021 Start / End Times Start Time: 1130 End Time: 1150 Referring Physician Lencho Gordillo MD History syncope question seizure Home Medication List Medication Instructions Recorded Confirmed Type No Known Home Medications 02/23/21 02/23/21 History Inpatient Medication List Acetaminophen (Acetaminophen 325 Mg Tab) 650 mg PO Q4H PRN PRN Reason: Pain or Fever Stop: 03/25/21 22:50 Last Admin: 02/24/21 08:11 Dose: 650 mg Documented by: [id number] Clindamycin HCl (Clindamycin Hcl 150 Mg Cap) 300 mg PO Q6 [facility]; Protocol Stop: 03/03/21 05:59 Last Admin: 02/24/21 06:12 Dose: 300 mg Documented by: [id number] Enoxaparin Sodium (Enoxaparin Inj 40 Mg/0.4 Ml Syr) 40 mg SQ QAM [facility] Stop: 03/26/21 08:59 Last Admin: 02/24/21 08:12 Dose: 40 mg Documented by: [id number] Lactobacillus Acidoph/Casei/Rhamnos (Advanced Probiotic 1250 Mg Capsule) 2 cap PO DAILY [facility] Stop: 03/26/21 08:59 Last Admin: 02/24/21 08:12 Dose: 2 cap Documented by: [id number] Miscellaneous (Remove Nicoderm Patch) 1 ea N/A DAILY@0859 [facility] Stop: 03/26/21 08:58 Last Admin: 02/24/21 08:07 Dose: Not Given Documented by: [id number] Nicotine (Nicotine 14 Mg/24 Hr Patch) 14 mg TD QAM [facility] Stop: 03/25/21 23:14 Last Admin: 02/24/21 08:07 Dose: Not Given Documented by: [id number] Admin: 02/23/21 23:13 Dose: 14 mg Documented by: [id number] Discontinued Medications Diphenhydramine HCl (Diphenhydramine 50 Mg/Ml Vial) 12.5 mg IV NOW STA Stop: 02/23/21 19:45 Last Admin: 02/23/21 19:51 Dose: 12.5 mg Documented by: [id number] Gadobutrol (Gadobutrol 7.5ml Vial) 7.5 ml IV ONCE ONE Stop: 02/23/21 17:22 Last Admin: 02/23/21 17:21 Dose: 7.5 ml Documented by: [id number] Sodium Chloride (Nss 1000ml) 2,000 mls @ 999 mls/hr IV .Q2H1M ONE Stop: 02/23/21 15:17 Last Infusion: 02/23/21 15:45 Dose: 0 mls/hr Documented by: [id number] Admin: 02/23/21 13:45 Dose: 999 mls/hr Documented by: [id number] Acetaminophen (Ofirmev) 1,000 mg in 100 mls @ 400 mls/hr IV NOW STA Stop: 02/23/21 19:58 Last Infusion: 02/23/21 20:18 Dose: 0 mls/hr Documented by: [id number] Admin: 02/23/21 19:50 Dose: 400 mls/hr Documented by: [id number] Lactated Ringer's (Lr) 1,000 mls @ 125 mls/hr IV .Q8H PLACIDO Stop: 03/25/21 19:44 Last Admin: 02/23/21 23:36 Dose: Not Given Documented by: [id number] Prochlorperazine (Compazine) 1 mls @ 1 mls/min IV ONE ONE Stop: 02/23/21 19:45 Last Admin: 02/23/21 19:51 Dose: 1 mls/min Documented by: [id number] Clindamycin Phosphate 600 mg/ (Dextrose) 54 mls @ 100 mls/hr IV ONE ONE Stop: 02/23/21 22:25 Last Infusion: 02/23/21 23:51 Dose: 0 mls/hr Documented by: [id number] Admin: 02/23/21 23:14 Dose: 100 mls/hr Documented by: [id number] Potassium Chloride 20 meq/ (Lactated Ringer's) 1,010 mls @ 80 mls/hr IV .[id number] ONE Stop: 02/24/21 11:52 Last Infusion: 02/24/21 11:53 Dose: 0 mls/hr Documented by: [id number] Admin: 02/23/21 23:13 Dose: 80 mls/hr Documented by: [id number] Ioversol (Optiray 350 500ml) 120 ml IV ONCE ONE Stop: 02/23/21 20:58 Last Admin: 02/23/21 20:58 Dose: 120 ml Documented by: [id number] Lactulose (Lactulose Syrup 30 Gm/45 Ml Udp) 30 gm PO NOW STA Stop: 02/24/21 00:17 Last Admin: 02/24/21 00:42 Dose: 30 gm Documented by: [id number] Naloxone HCl (Naloxone Hcl 0.4 Mg/1 Ml Vial/Carp) 0.4 mg IV NOW STA Stop: 02/23/21 13:05 Last Admin: 02/23/21 14:50 Dose: Not Given Documented by: [id number] Potassium Chloride (Potassium Chloride Crtab 20 Meq Tabcr) 40 meq PO NOW STA Stop: 02/23/21 19:16 Last Admin: 02/23/21 19:50 Dose: 40 meq Documented by: [id number] Potassium Chloride (Potassium Chloride Crtab 20 Meq Tabcr) 40 meq PO NOW STA Stop: 02/23/21 21:54 Last Admin: 02/23/21 22:29 Dose: 40 meq Documented by: [id number] Description This is a 21 electrode EEG with a single channel dedicated to limited EKG. The electrodes were placed in accordance with the International 10-20 system. This EEG was obtained as a bedside recording is of good technical quality with few muscle movement artifact initially. 1 brief episode of drowsiness was rec orded. Photic stimulation is performed. Under the conditions there is evidence for a symmetrical posterior head region maximal background rhythm in the alpha range of up to 10 Hz maximal frequency a nd 20 V maximum amplitude. Polymorphic mid upper frequency modest voltage theta activity seen symmetrically in the central regions. Beta activity seen bifrontally. Photic stimulation elicited for changes There is no evidence for potentially epileptogenic activity at any time during the waking and brief duration drowsy recording Interpretation This is a normal EEG without evidence for focal generalized encephalopathy or for potential epileptogenic activity Clinical Correlation Normal EEG showing no evidence for focal generalized encephalopathy or evidence for potentially epileptogenic discharges. Normal study unfortunately does not exclude the diagnosis of seizure disorder and clinical correlation is required Jah Bolton MD
--- NOTE | 2021-02-24 16:01 | Hospitalist Progress Note ---
Date of Service February 24, 2021 Assessment & Plan (1) Syncope: Pt was brought to the ER after found unresponsive, lack of adequate breathing, no pulse and chest compression was started Unknown etiology MRI/CT head showed no acute intracranial abnormality UDS negative Cardiology on board Tele monitor showed no arrhythmia ECHO showed no LV wall motion abnormal with EF 60-65% EEG showed no evidence for focal generalized encephalopathy or evidence for potentially epileptogenic discharges. Procalcitonin pending Clinically improves Continue monitor closely Aspiration Pneumonia CTA chest showed mild patchy consolidation is seen at the right lung base. Continue Clindamycin PO Tobacco abuse Counseling on smoking cessation Continue Nicotic patch DVT prophylaxis on Lovenox subcu Full code Admission and Anticipated Discharge Date Admission Date: February 23, 2021 Subjective Pt was seen and examined for follow up of syncope Pt said that he feels fine He said that he does not remember anything that happened yesterday Currently he said that he feels fine Denies any chest pain, palpitation, dizziness and SOB Review of Systems Review of Systems: All systems reviewed & are unremarkable except as noted in Subjective Physical Exam Physical Exam: General- No acute distress Head- atraumatic Eyes- PERRL, EOMI, ENT- oropharynx clear Neck- supple, no JVD Lungs- clear to auscultation Heart- regular rhythm; no murmur Abdomen- normal bowel sounds, soft, nontender Extremities- no calf tenderness Neuro- alert, oriented x 3; PERRL, EOMI; no facial palsy; no dysarthria Skin- warm & dry Results & Data Results & Data ([facility]) Vital Signs (Past 12 Hours) Vital Signs Temp Pulse Pulse Resp BP Pulse Ox 02/24/21 11:13 36.7 C 71 20 111/68 94 02/24/21 09:53 64 02/24/21 07:41 36.9 C 80 19 113/68 97 (1) Syncope Syncope type: unspecified Qualified Code(s): R55 - Syncope and collapse
[2021-02-25] MEDS: CLINDAMYCIN HCL 150 MG CAP PO SCH ×5 (00:40→23:32)
[2021-02-25] MEDS: NICOTINE 14 MG/24 HR PATCH TD SCH (08:26)
[2021-02-25] MEDS: ADVANCED PROBIOTIC 1250 MG CAPSULE PO SCH (08:26)
[2021-02-25] MEDS: ENOXAPARIN INJ 40 MG/0.4 ML SYR SQ SCH (08:26)
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
--- NOTE | 2021-02-25 17:20 | Hospitalist Progress Note ---
Date of Service February 25, 2021 Assessment & Plan (1) Syncope: Pt was brought to the ER after found unresponsive, lack of adequate breathing, no pulse and chest compression was started Unknown etiology MRI/CT head showed no acute intracranial abnormality UDS negative Cardiology on board Tele monitor showed no arrhythmia ECHO showed no LV wall motion abnormal with EF 60-65% EEG showed no evidence for focal generalized encephalopathy or evidence for potentially epileptogenic discharges. Procalcitonin normal No arrhythmias observed. Cardio consulted EP for further eval for the synconpe Clinically improves Continue monitor closely in tele Aspiration Pneumonia CTA chest showed mild patchy consolidation is seen at the right lung base. Continue Clindamycin PO Asymptomatic Tobacco abuse Counseling on smoking cessation Continue Nicotine patch DVT prophylaxis on Lovenox subcu Full code Admission and Anticipated Discharge Date Admission Date: February 23, 2021 Subjective Pt was seen and examined for follow up of syncope Lying in bed with no distress watching video in his phone Tele monitor showed HR increased in the 120's one time Denies any chest pain, palpitation, dizziness and SOB Review of Systems Review of Systems: All systems reviewed & are unremarkable except as noted in Subjective Physical Exam Physical Exam: General- No acute distress Head- atraumatic Eyes- PERRL, EOMI, ENT- oropharynx clear Neck- supple, no JVD Lungs- clear to auscultation Heart- regular rhythm; no murmur Abdomen- normal bowel sounds, soft, nontender Extremities- no calf tenderness Neuro- alert, oriented x 3; PERRL, EOMI; no facial palsy; no dysarthria Skin- warm & dry Results & Data Results & Data ([facility]) Vital Signs (Past 12 Hours) Vital Signs Temp Pulse Pulse Resp BP Pulse Ox 02/25/21 16:26 76 02/25/21 15:30 36.7 C 80 19 126/77 95 02/25/21 12:00 37.0 C 72 18 114/59 L 98 02/25/21 11:00 36.9 C 82 18 119/67 98 02/25/21 07:00 36.8 C 82 16 129/68 96 (1) Syncope Syncope type: unspecified Qualified Code(s): R55 - Syncope and collapse
[2021-02-26] MEDS: CLINDAMYCIN HCL 150 MG CAP PO SCH ×3 (06:08→18:06)
[2021-02-26] MEDS: NICOTINE 14 MG/24 HR PATCH TD SCH (08:37)
[2021-02-26] MEDS: ENOXAPARIN INJ 40 MG/0.4 ML SYR SQ SCH ×2 (08:39→15:02)
[2021-02-26] MEDS: ADVANCED PROBIOTIC 1250 MG CAPSULE PO SCH (08:39)
--- NOTE | 2021-02-26 12:24 | History & Physical Bridge Note ---
Date of Service February 26, 2021 History & Physical Bridge Note I have examined the patient, reviewed the History & Physical and in the interval since the performance of the History & Physical I have noted the following changes of clinical significance: no changes noted. I reviewed the indications, procedure, risks and alternatives with the patient, answered all questions. Consent obtained. Patient understands and agrees to the procedure. I also reviewed the risks and use of sedation, patient understands and consent obtained.
--- NOTE | 2021-02-26 12:25 | Pre Anesthesia Assessment ---
Date of Service February 26, 2021 Pre Sedation Assessment Vital Signs Temp Pulse Pulse Pulse Resp BP BP 02/26/21 11:52 69 18 129/75 02/26/21 11:00 36.5 C 79 18 121/76 02/26/21 08:27 36.5 C 70 18 118/69 02/26/21 07:00 67 02/26/21 03:50 36.5 C 53 L 16 116/64 02/26/21 00:11 36.6 C 70 16 105/70 02/25/21 20:31 36.3 C L 82 18 128/80 02/25/21 16:26 76 02/25/21 15:30 36.7 C 80 19 126/77 Pulse Ox 02/26/21 11:52 99 02/26/21 11:00 99 02/26/21 08:27 99 02/26/21 07:00 02/26/21 03:50 96 02/26/21 00:11 97 02/25/21 20:31 96 02/25/21 16:26 02/25/21 15:30 95 Cardiovascular RRR, no murmur, no edema Respiratory normal respiratory effort, lungs clear to auscultation Pre-Sedation Airway Assessment Smoking Status: Current every day smoker Hx Sleep Apnea: No Hx Difficult Intubation: No Short, Thick Neck: No Thyromental Distance: > or= 3.5 Finger Breadths Oral Cavity: + WNL Mallampati Class: I ASA: ASA2 NPO Status Date of Last Intake of Fluids: 02/25/21 Time of Last Intake of Fluids: 21:30 Date of Last Intake of Solid Food: 02/25/21 Time of Last Intake of Solid Foods: 21:30 Procedure Planning Contraindications for Sedation: none Current Medications Reviewed: Yes Notes The planned sedation has been discussed with the patient. Informed Consent was obtained. I have identified the patient, determined the appropriateness of sedation and have assessed the patient immediately prior to the procedure. All medicine(s) and interventions are by my order.
[2021-02-26] MEDS ORDERED: CLINDAMYCIN PHOS 300 MG/2 ML VIAL ONE (12:33)
[2021-02-26] MEDS ORDERED: MIDAZOLAM HCL 5 MG/ML 1 ML VIAL ONE (12:35)
[2021-02-26] MEDS ORDERED: fentaNYL citrate 100 MCG/2 ML VIAL ONE (12:36)
[2021-02-26] MEDS ORDERED: BACITRACIN OINT 0.9 GM PKT ONE (13:03)
[2021-02-26] MEDS ORDERED: ISOPROTERENOL HCL 0.2 MG/ML 5 ML AMP IV ONE (13:16)
--- NOTE | 2021-02-26 14:26 | Electrophysiology Report ---
Date of Service February 26, 2021 Electrophysiology Procedure Electrophysiology Procedure Report Preprocedure diagnosis: Loss of consciousness Post procedure diagnosis: Same Procedure: Electrophysiologic study Loop recorder implantation Surgeon: Delmer Mishra MD Complications: None Estimated blood loss: 20 cc Disposition: [employer] recovery Procedure details: Patient was brought to the laboratory being n.p.o. after midnight, he signed consent, he was identified in the laboratory and prepped and draped in standard sterile manner. The right groin was anesthetized with lidocaine local anesthetic and 6 Swedish introducers were placed in the right femoral vein. Catheters were advanced under fluoroscopic guidance through the sheaths to the high right atrium, AV junction, right ventricular apex. Once in position atrial and ventricular thresholds were evaluated, programmed electrical stimulation was performed in the atrium and ventricle to assess AV paulo function as well as atrial and ventricular electrical function. The initial electrophysiologic study was unremarkable, Isopril was initiated at a titrating dose and stimulation repeated with no inducible arrhythmia. At the conclusion of the procedure the catheters were withdrawn under fluoroscopic guidance and hemostasis obtained by from pressure to the puncture sites. The patient remained in the laboratory for loop recorder implantation, he was prepped and draped on the table for that procedure. Consent had been obtained prior to the electrophysiologic study. An area at the fourth left intercostal space and 1 cm left of the left sternal border was infiltrated with 1% lidocaine local anesthetic and a 0.5 cm incision was made through the skin. Using the loop recorder insertion tool the loop recorder was inserted through the incision at a 45 downward and leftward angle. The incision was closed with a subcutaneous continuous closure of 4-0 Vicryl followed by a running subcuticular skin closure of 4-0 Vicryl. Steri-Strips were applied and bacitracin ointment was placed on the incision. A dressing was applied. Electrophysiologic data: Normal antegrade conduction intervals Retrograde VA block cycle length 550 ms, no evidence of bypass tract conduction Antegrade AV block cycle length 350 ms, no evidence of bypass tract conduction Normal corrected sinus node recovery time No evidence of dual AV paulo pathways or inducible SVT. No inducible ventricular tachycardia with single double and triple ventricular extrastimuli at cycle lengths of 604 150 ms at the right ventricular apex. No inducible SVT or VT on Isuprel 3 mics per minute. [facility] Electrophysiology codes Indication for Procedure (1) LOC (loss of consciousness): EP Procedure 1: Electrophysiology: 37204 Comp EPS with induction Procedure 2: Electrophysiology: 93697 Drug Stimulation Implantable Monitors Procedure 1: Implantable Monitors: 44801 Loop Recorder Implant PG Moderate Sedation Codes Moderate Sedation Codes Procedure 1: Sedation/Anesthesia: 85345 Mod Sedation by the same physician;Init15 Min Child Age 5 & Up Procedure 2: Sedation/Anesthesia: 57356 Mod Sedation by the same physician; Ea [id number] Minutes
--- NOTE | 2021-02-26 16:45 | Post Anesthesia Assessment ---
Date of Service February 26, 2021 Post Sedation Assessment Vital Signs Temp Pulse Pulse Pulse Resp BP BP 02/26/21 16:18 36.8 C 62 16 108/74 02/26/21 15:49 36.7 C 63 18 109/72 02/26/21 15:30 36.8 C 62 16 106/76 02/26/21 15:22 36.8 C 63 18 107/70 02/26/21 14:57 36.6 C 71 18 111/72 02/26/21 14:42 36.6 C 69 16 114/73 02/26/21 14:36 67 16 116/67 02/26/21 14:23 70 16 111/64 02/26/21 11:52 69 18 129/75 02/26/21 11:00 36.5 C 79 18 121/76 02/26/21 08:27 36.5 C 70 18 118/69 02/26/21 07:00 67 02/26/21 03:50 36.5 C 53 L 16 116/64 02/26/21 00:11 36.6 C 70 16 105/70 02/25/21 20:31 36.3 C L 82 18 128/80 Pulse Ox 02/26/21 16:18 100 02/26/21 15:49 99 02/26/21 15:30 100 02/26/21 15:22 98 02/26/21 14:57 99 02/26/21 14:42 100 02/26/21 14:36 97 02/26/21 14:23 97 02/26/21 11:52 99 02/26/21 11:00 99 02/26/21 08:27 99 02/26/21 07:00 02/26/21 03:50 96 02/26/21 00:11 97 02/25/21 20:31 96 Recovery Score Activity: Moves 4 extremities Respiration: Deep Breath/Cough Circulation: +/-20% PreAnes Value Consciousness: Fully Awake Oxygen Saturation: > 92% On Room Air Post Anesthesia Score: 10 Discharge Sedation Level of Care: Fast Track Phase II Post Sedation Plan On clinical assessment, the patient appears to have tolerated the sedation without complications. Patient is recovering as anticipated. Patient will continue to be monitored by nursing and may be discharged when sedation discharge criteria are met per below protocol. Upon Completions of procedure up to 15 minutes continue every 5 minute vital signs and the P.A.R. score; then discharge to a Phase I or Fast Track to Phase I I per the following guidelines: * Discharge Patient to appropriate Phase II area if PAR is 8 or greater or return to pre- procedure baseline. The post - procedure orders will be as directed. * If PAR score is less than 8 or not return to pre-procedure baseline then patient will follow Phase I monitoring till PAR is reached for Phase II. The Phase I may be done in procedure room or may call to secure a Phase I area. * If naloxone or flumazenil are used for reversal, hold in Phase I for continued monitoring from when last reversal dose was given for a minimum of 60 minutes or longer pending the nurse and/or physician discretion of patient condition before discharge to Phase II. Please call the Sedation Physician to re-evaluate and complete post-note for discharge to Phase II area. Do NOT discharge from procedure sedation or Phase 1 until post- sedation evaluation note is complete by procedure /sedation MD Sedation Discharge Instructions to be given to the patient at discharge to home.
--- NOTE | 2021-02-26 18:06 | Cardiology Progress Note ---
Date of Service February 26, 2021 Assessment & Plan (1) Bicuspid aortic valve: Likely an incidental findings, with nor , no AR, normal aortic root and ascending aorta diameters. (2) LOC (loss of consciousness): EEG negative. Echo without evidence of cardiomyopathy. No arrhythmias observed. EP input noted and appreciated. Case discussed with Dr. Mishra. Electrophysiology study performed via right femoral vein approach, no inducible arrhythmia. [employer] LINQ loop recorder implanted. Settings included detection for tachycardia greater than 180 bpm as well as significant bradycardia episodes. Patient stable for discharge after completing the recovery protocol for femoral vein access. His loop recorder has been enrolled in the [employer] system. I have requested device clinic appointment and wound check within 1 week and c linical cardiology follow up soon after. 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 I once again discussed with him the need For him to not drive for the next 6 months pending further assessment. He needs to be 6 months free of recurrent event prior to reinstating driving. His duties at the [employer] also need to be restricted pending further assessment. I called patients mother, Dawna, phone [phone] and updated her. I specifically discussed the driving and systems consultant restrictions. Admission and Anticipated Discharge Date Admission Date: February 23, 2021 Subjective Patient seen in general cardiology follow-up having undergone EP study, loop recorder implant earlier today. He feels well without complaints. He is eager for discharge. Telemetry reveals sinus rhythm. Physical Exam Physical Exam: Temp Pulse Resp BP Pulse Ox 36.8 C 64 20 110/73 100 02/26/21 16:54 02/26/21 16:54 02/26/21 16:54 02/26/21 16:54 02/26/21 16:54 Constitutional: WD/WN, vitals as above Respiratory: normal respiratory effort, lungs clear to auscultation Cardiovascular: RRR, no murmur, no edema Femoral vein access site clean dry intact, no hematoma Gastrointestinal (Abdomen): normal bowel sounds, soft, nontender, no hepatosplenomegaly Neurologic: PERRL, EOMI, accommodation nl, no face palsy, no dysarthria Results & Data ([facility]) Vital Signs (Past 12 Hours) Vital Signs Temp Pulse Pulse Pulse Resp BP BP 02/26/21 16:54 36.8 C 64 20 110/73 02/26/21 16:18 36.8 C 62 16 108/74 02/26/21 15:49 36.7 C 63 18 109/72 02/26/21 15:30 36.8 C 62 16 106/76 02/26/21 15:22 36.8 C 63 18 107/70 02/26/21 14:57 36.6 C 71 18 111/72 02/26/21 14:42 36.6 C 69 16 114/73 02/26/21 14:36 67 16 116/67 02/26/21 14:23 70 16 111/64 02/26/21 11:52 69 18 129/75 02/26/21 11:00 36.5 C 79 18 121/76 02/26/21 08:27 36.5 C 70 18 118/69 02/26/21 07:00 67 Pulse Ox 02/26/21 16:54 100 02/26/21 16:18 100 02/26/21 15:49 99 02/26/21 15:30 100 02/26/21 15:22 98 02/26/21 14:57 99 02/26/21 14:42 100 02/26/21 14:36 97 02/26/21 14:23 97 02/26/21 11:52 99 02/26/21 11:00 99 02/26/21 08:27 99 02/26/21 07:00
--- NOTE | 2021-02-26 18:38 | Hospitalist Progress Note ---
Date of Service February 26, 2021 Assessment & Plan (1) Syncope: Pt was brought to the ER after found unresponsive, lack of adequate breathing, no pulse and chest compression was started Unknown etiology MRI/CT head showed no acute intracranial abnormality UDS negative Cardiology on board Tele monitor showed no arrhythmia ECHO showed no LV wall motion abnormal with EF 60-65% EEG showed no evidence for focal generalized encephalopathy or evidence for potentially epileptogenic discharges. Prolactin normal Cardio consulted EP for further eval for the syncope Electrophysiology study performed via right femoral vein approach, no inducible arrhythmia. [employer]onic LINQ loop recorder implanted. Settings included detection for tachycardia greater than 180 bpm as well as significant bradycardia episodes. His loop recorder has been enrolled in the [employer] system. Pt was advised not to drive for the next 6 months. He needs to be 6 months free of recurrent event prior to reinstating driving. His duties at the [employer] also need to be restricted pending further assessment. OK from cardiology standpoint to discharge home Follow up with cardiology in 1 week for device and wound check Aspiration Pneumonia CTA chest showed mild patchy consolidation is seen at the right lung base. Continue Clindamycin PO Asymptomatic Will d/c antibiotic on discharge Tobacco abuse Counseling on smoking cessation Continue Nicotine patch DVT prophylaxis on Lovenox subcu Full code Disposition Discharge home today Admission and Anticipated Discharge Date Admission Date: February 23, 2021 Subjective Pt was seen and examined for follow up of syncope Lying in bed with no distress Pt said that he feels fine He just get back from the EP study Denies any symptoms Review of Systems Review of Systems: All systems reviewed & are unremarkable except as noted in Subjective Physical Exam Physical Exam: General- No acute distress Head- atraumatic Eyes- PERRL, EOMI, ENT- oropharynx clear Neck- supple, no JVD Lungs- clear to auscultation Heart- regular rhythm; no murmur Abdomen- normal bowel sounds, soft, nontender Extremities- no calf tenderness Neuro- alert, oriented x 3; PERRL, EOMI; no facial palsy; no dysarthria Skin- warm & dry Results & Data Results & Data ([facility]) Vital Signs (Past 12 Hours) Vital Signs Temp Pulse Pulse Pulse Resp BP BP 02/26/21 18:00 36.7 C 66 20 122/83 02/26/21 17:30 36.6 C 70 18 118/78 02/26/21 16:54 36.8 C 64 20 110/73 02/26/21 16:18 36.8 C 62 16 108/74 02/26/21 15:49 36.7 C 63 18 109/72 02/26/21 15:30 36.8 C 62 16 106/76 02/26/21 15:22 36.8 C 63 18 107/70 02/26/21 14:57 36.6 C 71 18 111/72 02/26/21 14:42 36.6 C 69 16 114/73 02/26/21 14:36 67 16 116/67 02/26/21 14:23 70 16 111/64 02/26/21 11:52 69 18 129/75 02/26/21 11:00 36.5 C 79 18 121/76 02/26/21 08:27 36.5 C 70 18 118/69 02/26/21 07:00 67 Pulse Ox 02/26/21 18:00 02/26/21 17:30 100 02/26/21 16:54 100 02/26/21 16:18 100 02/26/21 15:49 99 02/26/21 15:30 100 02/26/21 15:22 98 02/26/21 14:57 99 02/26/21 14:42 100 02/26/21 14:36 97 02/26/21 14:23 97 02/26/21 11:52 99 02/26/21 11:00 99 02/26/21 08:27 99 02/26/21 07:00 (1) Syncope Syncope type: unspecified Qualified Code(s): R55 - Syncope and collapse
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
== END 2021-02-26 19:15 | disposition home or self-care (01) | DRG 273 ==
LOC: ED 12:44 → 2S 21:46